=== PATIENT | male | born 1950 | race Caucasian/White ===

== ENCOUNTER 2021-11-29 08:04 | Day surgery (SDC) | payer MEDICARE ==
[2021-11-23 12:15] LABS: BASOPHILS % (AUTO) 0.6 % (0.0-5.0); EOSINOPHILS % (AUTO) 3.1 % (0.0-8.0); HEMATOCRIT 35.6 % (42-54); LYMPHOCYTES % (AUTO) 21.4 % (21.0-51.0); MEAN CORPUSCULAR HEMOGLOBIN 27.8 pg (27.0-33.0); MEAN CORPUSCULAR HGB CONC 31.7 g/dL (32.0-36.0); MEAN CORPUSCULAR VOLUME 87.5 fL (79-99); MONOCYTES % (AUTO) 4.6 % (3.0-13.0); NEUTROPHILS % (AUTO) 69.9 % (40.0-77.0); PLATELET COUNT (AUTO) 262 K/uL (130-400); RED BLOOD CELL COUNT(AUTO) 4.07 MIL/uL (4.50-6.20); RED CELL DISTRIBUTION WIDTH 13.4 % (11.0-15.5); WHITE BLOOD COUNT (AUTO) 10.8 K/uL (4.8-10.8)
[2021-11-23 12:25] LABS: INR 1.01 (0.85-1.15)
[2021-11-23 12:38] LABS: CREATININE 1.7 mg/dL (0.5-1.5); POTASSIUM 5.3 mmol/L (3.5-5.1)
[2021-11-23 13:26] LABS: APPEARANCE,URINE CLEAR (CLEAR); BILIRUBIN,URINE NEGATIVE (NEGATIVE); COLOR,URINE YELLOW (YELLOW); GLUCOSE, URINE (UA) >=1000 mg/dL (NEGATIVE); KETONES,URINE 5 mg/dL (NEGATIVE); LEUKOCYTE ESTERASE ,URINE TRACE (NEGATIVE); NITRATE,URINE NEGATIVE (NEGATIVE); OCCULT BLOOD,URINE SMALL (NEGATIVE); PH,URINE 5.5 (5.0-8.0); PROTEIN,URINE TRACE mg/dL (NEGATIVE); UROBILINOGEN,URINE 0.2 mg/dL (0.2-1.0)
[2021-11-23 13:31] LABS: RBC,URINE 0-1 /HPF (0-1)
[2021-11-23 13:32] LABS: BACTERIA,URINE Rare /HPF (None Seen); SQUAMOUS EPITHELIAL CELL,UR Rare /HPF (0-2)
[2021-11-28 09:56] VITALS: BP 97/53
[2021-11-29] VITALS (18 sets, daily range): BP systolic 103–142; BP diastolic 42–70
[~2021-11-29] VITALS: Ht 188 cm; Wt 109.7 kg
[~2021-11-29 08:04] MED LIST: AEC81 PO; ALBU90AE2 IH; AMLO-258 PO; CLON1TAB12 PO; CYCL10TA16 PO; FAMO40TA75 PO; GABA300C PO; GENTAMICIN 80 MG/NS 100 ML PB 100 ML IV SCH; GLYBURIDE PO; HYDR-4068 PO; LEVOFLOXACIN 500 MG/D5W 100 ML 100 ML IV SCH; LISI10TA24 PO; LOPE2CAP PO; LOVA20TA3 PO; METF-446 PO; METO-408 PO; NITR0.4T50 SL; SERT-440 PO; TAMS-1 PO; TRAZ-187 PO
[2021-11-29] MEDS ORDERED: 0.9%NACL 1000ML 1,000 ML IV ONE (08:33)
[2021-11-29] MEDS ORDERED: PROPOFOL 10 MG/ML 20ML VIAL IV ONE (09:10)
[2021-11-29] MEDS ORDERED: MIDAZOLAM HCL 1 MG/ML 2ML VIAL ONE (09:10)
[2021-11-29] MEDS ORDERED: ROCURONIUM 10MG/1ML SYR 10 MG/ML ML ONE (09:10)
[2021-11-29] MEDS ORDERED: SUCCINYLCHOLINE 200MG/10ML SYR ONE (09:10)
[2021-11-29] MEDS ORDERED: LIDOCAINE PF 100MG/5ML (2%) SYRINGE 5ML ONE (09:10)
[2021-11-29] MEDS ORDERED: FENTANYL CITRATE PF 50 MCG/1 ML 2ML VIAL ONE (09:11)
[2021-11-29] MEDS ORDERED: CYCL10TA16 PO (09:33)
[2021-11-29] MEDS ORDERED: LEVO500T90 PO (09:33)
[2021-11-29] MEDS ORDERED: EPHEDRINE SULFATE 50 MG/ML AMPULE ONE (09:58)
[2021-11-29] MEDS ORDERED: NEOSTIGMINE 5MG/5ML SYR IV ONE (10:50)
[2021-11-29] MEDS ORDERED: GLYCOPYRROLATE 1 MG/5 ML SYRINGE ONE (10:50)
== END 2021-11-29 13:00 | disposition home or self-care (01) ==
LOC: DAH 08:04
PROVIDERS: ATTEND Urology
DX: N40.1 Benign prostatic hyperplasia with lower urinary tract symptoms (principal); R33.8 Other retention of urine; I25.10 Atherosclerotic heart disease of native coronary artery without angina pectoris; E11.9 Type 2 diabetes mellitus without complications; I10 Essential (primary) hypertension; E78.5 Hyperlipidemia, unspecified; E66.9 Obesity, unspecified; Z20.822 Contact with and (suspected) exposure to COVID-19; Z79.899 Other long term (current) drug therapy; Z98.890 Other specified postprocedural states; Z87.891 Personal history of nicotine dependence; Z72.89 Other problems related to lifestyle; Z82.49 Family history of ischemic heart disease and other diseases of the circulatory system; Z80.9 Family history of malignant neoplasm, unspecified; Z68.31 Body mass index [BMI] 31.0-31.9, adult
CPT/HCPCS: 36415; 52648; 71045; 80048; 81001; 82948 ×2; 85025; 85610; 87088; 87635; 93005; A4215; A4221; A4222; A4223; A4354; A4358; A4600; A4663; A4930; A6260; C1758; C9803; J0330; J1580; J2001; J2250; J2704; J2710; J3490 ×2; J7030 ×2; J1956; J3010

== ENCOUNTER 2021-12-05 14:47 | Emergency (ER) | payer MEDICARE ==
[~2021-12-05] VITALS: Ht 188 cm; Wt 108.9 kg
[~2021-12-05 14:47] MED LIST changes: -GENTAMICIN 80 MG/NS 100 ML PB 100 ML IV SCH; +LEVO500T90 PO; -LEVOFLOXACIN 500 MG/D5W 100 ML 100 ML IV SCH
[2021-12-05 15:36] LABS: BASOPHILS % (AUTO) 0.4 % (0.0-5.0); EOSINOPHILS % (AUTO) 0.1 % (0.0-8.0); HEMATOCRIT 32.5 % (42-54); LYMPHOCYTES % (AUTO) 14.3 % (21.0-51.0); MEAN CORPUSCULAR HEMOGLOBIN 28.1 pg (27.0-33.0); MEAN CORPUSCULAR HGB CONC 32.3 g/dL (32.0-36.0); MEAN CORPUSCULAR VOLUME 86.9 fL (79-99); MONOCYTES % (AUTO) 6.4 % (3.0-13.0); NEUTROPHILS % (AUTO) 78.3 % (40.0-77.0); PLATELET COUNT (AUTO) 194 K/uL (130-400); RED BLOOD CELL COUNT(AUTO) 3.74 MIL/uL (4.50-6.20); RED CELL DISTRIBUTION WIDTH 13.9 % (11.0-15.5); WHITE BLOOD COUNT (AUTO) 7.4 K/uL (4.8-10.8)
[2021-12-05 15:48] LABS: CREATININE 1.9 mg/dL (0.5-1.5); POTASSIUM 4.2 mmol/L (3.5-5.1)
[2021-12-05 15:53] LABS: ALBUMIN 2.9 g/dL (3.5-5.0); BILIRUBIN,TOTAL 0.3 mg/dL (0.2-1.0); TOTAL PROTEIN, SERUM 7.2 g/dL (6.0-8.3)
[2021-12-05 16:00] LABS: BILIRUBIN,URINE Negative (NEGATIVE); COLOR,URINE Orange (YELLOW); GLUCOSE, URINE (UA) >=1000 mg/dL (NEGATIVE); KETONES,URINE Negative (NEGATIVE); LEUKOCYTE ESTERASE ,URINE Large (NEGATIVE); NITRATE,URINE Positive (NEGATIVE); OCCULT BLOOD,URINE Large (NEGATIVE); PH,URINE 5.5 (5.0-8.0); PROTEIN,URINE 300 mg/dL (NEGATIVE)
[2021-12-05 16:15] LABS: APPEARANCE,URINE CLOUDY (CLEAR)
[2021-12-05] MEDS ORDERED: 0.9%NACL 1000ML 1,000 ML IV ONE (16:30)
[2021-12-05 16:36] LABS: BACTERIA,URINE Few /HPF (None Seen)
[2021-12-05 16:37] LABS: SQUAMOUS EPITHELIAL CELL,UR Rare /HPF (0-2); YEAST,URINE BUDDING Moderate /HPF (None Seen)
[2021-12-05] MEDS ORDERED: D-ME118S47 PO (18:17)
[2021-12-05] MEDS ORDERED: NIRM1TAB PO (18:17)
[2021-12-05] MEDS ORDERED: ONDA4TAB10 PO (18:17)
[2021-12-05 18:31] VITALS: BP 109/51
== END 2021-12-05 18:33 | disposition home or self-care (01) ==
LOC: EDH 14:47
DX: U07.1 COVID-19 (principal); E86.0 Dehydration; M62.81 Muscle weakness (generalized); I11.0 Hypertensive heart disease with heart failure; E11.9 Type 2 diabetes mellitus without complications; I25.10 Atherosclerotic heart disease of native coronary artery without angina pectoris; E78.00 Pure hypercholesterolemia, unspecified; Z79.82 Long term (current) use of aspirin; Z79.84 Long term (current) use of oral hypoglycemic drugs; Z79.899 Other long term (current) drug therapy
CPT/HCPCS: 36415; 80053; 81001; 85025; 87077; 87088; 87186; 87635; 96360; 99283; C9803; J7030